=== PATIENT | male | born 1955 | race African-American/Black ===

== ENCOUNTER → 2020-03-08 12:45 | Outpatient (CLI) | payer MEDICARE, OTHER, SELFPAY ==
--- NOTE | ~2020-03-08 | CT_ITS ---
EXAMINATION: CT abdomen pelvis wo/w con DATE: 03/08/2020 13:46 INDICATION: Malignant neoplasm of the left kidney. Post left nephrectomy. Hypertension. TECHNIQUE: Computed tomography (CT) of the abdomen and pelvis was performed without and with 100 cc O mnipaque 350 intravenous contrast. The dose-length product was 1822.38 mGy-cm. Automated exposure con trol and iterative reconstruction technique were employed. COMPARISON: CT dated 03/21/2019 FINDINGS: There is left lower lobe atelectasis/scarring. Heart size normal. No significant pleural or pericardial effusion. The liver, spleen, pancreas, adrenal glands are unremarkable. There are right renal cysts, largest measuring 1.8 cm. The left kidney is surgically absent. Small periumbilical scott ia containing fat. Nonobstructive bowel gas pattern. Nonobstructive bowel gas pattern. Normal appendi x. Colonic diverticulosis without evidence for diverticulitis. No abnormal pelvic masses or fluid col lections. No osteolytic or osteoblastic lesions. No acute osseous abnormality. No significant vascula r abnormality. No lymphadenopathy. Gallbladder is present. IMPRESSION: 1. No evidence for metastatic disease. Reviewed, dictated and finalized at location A.
--- NOTE | ~2020-03-08 | XR_ITS ---
XR chest 2V DATE: 03/08/2020 13:47 INDICATION: Left renal neoplasm TECHNIQUE: 2 views COMPARISON: 02/11/2019 2 view chest FINDINGS: Borderline heart size. No hilar or mediastinal enlargement. No pulmonary infiltrate or cons olidation, pleural effusion or pulmonary vascular congestion or pneumothorax. Evidence of old pulmona ry granulomatous disease. IMPRESSION: Borderline heart size; no active pulmonary disease Reviewed, dictated and finalized at location B.
[2020-03-08 13:26] LABS: Estimated Glomerular Filt Rate > 60
== END ==
PROVIDERS: Visit Provider Urology
DX: C64.2 Malignant neoplasm of left kidney, except renal pelvis (principal)
CPT/HCPCS: 36415; 71046; 74178; Q9967

== ENCOUNTER → 2020-11-28 17:21 | Outpatient (CLI) | payer MEDICARE, SELFPAY ==
--- NOTE | ~2020-11-28 | XR_ITS ---
EXAMINATION: XR knee LT 2V DATE: 11/28/2020 18:57 INDICATION: Left knee pain. TECHNIQUE: 2 views of left knee were obtained. COMPARISON: Left knee radiographs 10/16/2004 FINDINGS: Bone alignment is normal. No fracture. There is mild osteoarthritis of medial and patellofe moral compartments. No knee joint effusion. IMPRESSION: 1. Mild left knee osteoarthritis. Reviewed, dictated and finalized at location A.
--- NOTE | ~2020-11-28 | XR_ITS ---
EXAMINATION: XR knee RT 2V DATE: 11/28/2020 18:57 INDICATION: Right knee pain. TECHNIQUE: 2 views of right knee were obtained. COMPARISON: None. FINDINGS: Bone alignment is normal. No fracture. There is mild osteoarthritis of medial and patellofe moral compartments. No knee joint effusion. IMPRESSION: 1. Mild right knee osteoarthritis. Reviewed, dictated and finalized at location A.
== END ==
PROVIDERS: PCP Family Medicine; Visit Provider Family Medicine
DX: M17.0 Bilateral primary osteoarthritis of knee (principal)
CPT/HCPCS: 73560

== ENCOUNTER → 2021-04-01 12:34 | Outpatient (CLI) | payer MEDICARE, SELFPAY ==
--- NOTE | ~2021-04-01 | XR_ITS ---
EXAMINATION: XR chest 2V DATE: 04/01/2021 12:51 INDICATION: Malignant neoplasm of left kidney, except renal pelvis. TECHNIQUE: Frontal and lateral views of the chest were obtained. COMPARISON: Chest 2 views 03/08/2020, CT abdomen and pelvis 03/08/2020 FINDINGS: The chest demonstrates clear lungs without pneumonia, pleural effusion, or pneumothorax. Th e heart size is normal. IMPRESSION: 1. No acute cardiopulmonary disease. Reviewed, dictated and finalized at location A.
== END ==
PROVIDERS: PCP Family Medicine; Visit Provider Urology
DX: C64.2 Malignant neoplasm of left kidney, except renal pelvis (principal)
CPT/HCPCS: 71046

== ENCOUNTER → 2021-12-16 13:06 | Outpatient (CLI) | payer MEDICARE, SELFPAY ==
--- NOTE | ~2021-12-16 | CT_ITS ---
EXAMINATION: CT abdomen pelvis wo con DATE: 12/16/2021 13:46 INDICATION: Renal colic on right side TECHNIQUE: Computed tomography (CT) of the abdomen and pelvis was performed without intravenous contr ast. The dose-length product was 1048.44 mGy-cm. COMPARISON: 03/08/2020 FINDINGS: Lower thorax: Bilateral lower lung scarring. Minimal aortic valve calcification. Mild bilateral gynec omastia. Liver: Normal. Biliary/Gallbladder: Gallbladder is normal. No bile duct dilation. Spleen: Normal. Pancreas: No mass or duct dilation. Adrenals:No mass. Kidneys: Right upper pole simple cyst. Subcentimeter right lower pole hypodensity, too small to alek cterize but statistically likely represents a cyst and requires no additional follow-up. Stable mild perinephric stranding. No suspicious mass, no stone, no hydronephrosis on the right. Status post left nephrectomy. GI tract: No small or large bowel dilation. Diverticulosis without diverticulitis. Normal appendix. Mesentery/Peritoneum: No ascites, mass, or free air. Retroperitoneum: No mass. Pelvis: Pelvic organs are within normal limits. Bones/Soft Tissues: Small fat-containing periumbilical hernia, otherwise soft tissues and body wall u nremarkable. No acute osseous finding. Additional Findings: None. IMPRESSION: No acute abdominopelvic process. Reviewed, dictated and finalized at location K.
--- NOTE | ~2021-12-16 | XR_ITS ---
EXAM: XR abdomen/kub 1V HISTORY: Renal colic on right side COMPARISON: CT abdomen and pelvis, same date FINDINGS: Lung bases clear. Normal bowel gas pattern. Surgical clips in the left midabdomen, absent left renal shadow. No abnormal abdominal calcifications. Degenerative changes in the pelvis and hips. IMPRESSION: No radiographic evidence of nephrolithiasis. Reviewed, dictated and finalized at location K.
== END ==
PROVIDERS: PCP Family Medicine; Visit Provider Urology
DX: N23 Unspecified renal colic (principal)
CPT/HCPCS: 74018; 74176

== ENCOUNTER → 2022-10-27 15:10 | Outpatient (CLI) | payer MEDICARE, SELFPAY ==
--- NOTE | ~2022-10-27 | XR_ITS ---
EXAM: XR knee RT 3V DATE: 10/27/2022 16:04 HISTORY: M25.561 - Pain in right knee . COMPARISON: 11/28/2020. FINDINGS: Normal mineralization. No fracture or dislocation. No lytic or blastic lesion. Mild medial joint space narrowing. Mild tricompartmental osteophytosis. Quadriceps enthesopathy. Unfused tibial apophysis. No erosion or periosteal change. Soft tissues within normal limits. IMPRESSION: Mild tricompartmental right knee osteoarthritis. 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
== END ==
PROVIDERS: PCP Family Medicine; Visit Provider Family Medicine
DX: M17.11 Unilateral primary osteoarthritis, right knee (principal)
CPT/HCPCS: 73562

== ENCOUNTER → 2022-11-21 14:54 | Outpatient (CLI) | payer MEDICARE, SELFPAY ==
--- NOTE | ~2022-11-21 | XR_ITS ---
EXAMINATION: XR chest 2V 11/21/2022 15:07 INDICATION: Chest pain PROCEDURE: 2 view chest COMPARISON: 04/01/2020 FINDINGS: The lungs are clear. The cardiomediastinal silhouette is within normal limits. There are no pleural effusions. There is no pneumothorax suspected. There are calcified granulomas unchanged in the right mid thorax. IMPRESSION: 1: NO ACUTE CARDIOPULMONARY DISEASE. Reviewed, dictated and finalized at location A.
== END ==
PROVIDERS: PCP Family Medicine; Visit Provider Physician Assistant
DX: R05.9 Cough, unspecified (principal); J45.909 Unspecified asthma, uncomplicated; R06.09 Other forms of dyspnea
CPT/HCPCS: 71046

== ENCOUNTER 2024-02-23 14:29 | Outpatient (CLI) | payer MEDICARE, SELFPAY ==
--- NOTE | 2024-02-23 16:38 | WPDPFTINT ---
PFT Procedure Performed PFT Procedure Performed Spirometry with Pre/Post Bronchodilator Plethysmography (Lung Vol) Diffusing Cap (DLCO) Flow Vol Loop PFT Interpretation This is a pulmonary function test with pre and post-bronchodilator spirometry, plethysmography and diffusing capacity. The test was performed and results interpreted in accordance with the 2019 and 2005 ATS/ERS Task Force guidelines respectively using the Global Lung Function Initiative-2012 reference equations. Patient demonstrated good effort and cooperation. Reproducibility criteria were met. The quality of the pre bronchodilator spirometry maneuver was Grade A and post bronchodilator spirometry maneuver was Grade A. Findings: Spirometry: There is decreased maximal expiratory airflow at all lung volumes with concave expiratory flow tracing. The contour the inspiratory flow tracing is normal. The pre bronchodilator FVC is 2.27 L, 55% predicted. The pre bronchodilator FEV1 is 1.46 L, 47% predicted. The pre bronchodilator FEV1: FVC ratio 64%. The post bronchodilator FVC is 2.49 L, representing a 9% increase. The post bronchodilator FEV1 is 1.70 L, representing a 17% increase. The post bronchodilator FEV1: FVC ratio 69%. Plethysmography: The total lung capacity is 4.36 L, 63% predicted. The functional residual capacity is 2.65 L, 68% predicted. The residual volume is 1.89 L, 76% predicted. Diffusing capacity: The diffusing capacity unadjusted for hemoglobin and carboxyhemoglobin is 19.1, 69% predicted. The diffusing capacity adjusted for alveolar volume is 4.89, 132% predicted. Impression: There is a combined obstructive and restrictive ventilatory abnormality. There are no guidelines to assign the severity of obstruction and restriction with a combined abnormality. In my opinion, given the moderately concave expiratory flow tracing, mildly decreased FEV1: FVC ratio and mild restrictive abnormality I would state there is a moderate obstructive abnormality and a mild restrictive abnormality resulting in a severe decrease in the FEV1. There is significant improvement after inhaling a single dose of albuterol. The diffusing capacity unadjusted for hemoglobin and carboxyhemoglobin is mildly decreased and normalizes when adjusted for alveolar volume. There are no prior studies for comparison
== END 2024-02-23 14:30 | disposition home or self-care (01) ==
PROVIDERS: PCP Family Medicine; Visit Provider Physician Assistant
DX: J45.909 Unspecified asthma, uncomplicated (principal); R94.2 Abnormal results of pulmonary function studies
CPT/HCPCS: 94060; 94726; 94729

== ENCOUNTER 2024-05-26 15:00 | Outpatient (CLI) | payer MEDICARE, SELFPAY ==
--- NOTE | ~2024-05-26 | XR_ITS ---
EXAMINATION: XR chest 2V Exam Date/Time: 05/26/2024 15:05 CDT HISTORY: J45.909 - Unspecified asthma, uncomplicated Comparison: 11/21/2022. RESULT: Lines, tubes, and devices: None. Lungs and pleura: Clear. Cardiomediastinal silhouette: Stable. Other: No acute osseous or upper abdominal finding. IMPRESSION: No acute cardiopulmonary process. Reviewed, dictated and finalized at location K.
== END 2024-05-26 15:01 | disposition home or self-care (01) ==
PROVIDERS: PCP Family Medicine; Visit Provider Internal Medicine Pulmonary Disease
DX: J45.909 Unspecified asthma, uncomplicated (principal); J98.4 Other disorders of lung
CPT/HCPCS: 71046

== ENCOUNTER 2024-06-10 13:42 | Outpatient (CLI) | payer MEDICARE, SELFPAY ==
--- NOTE | ~2024-06-10 | CT_ITS ---
CT diagnostic chest wo con Ordering provider: Gilmer Fuentes MD History: 68 years Male with . Other disorders of lung . Comparison: None. Technique: CT chest without IV contrast. Radiation reduction technique utilized.The dose-length product was 695.26 mGy-cm. FINDINGS: VISUALIZED THORACIC INLET: Enlarged right lobe with multiple nodules. Ultrasound evaluation advised. MEDIASTINUM: Aorta/coronary arteries: Mild atheromatous disease. Heart/other: The heart is slightly enlarged. Lymph nodes: No mediastinal or hilar adenopathy. Calcification the left hilar lymph nodes. LUNGS: Subsegmental atelectatic changes seen in the left lung base. Pleural thickening in the left lo wer lobe area posteriorly. No pulmonary nodules or masses. No infiltrates or effusions. No pneumothor ax. VISUALIZED UPPER ABDOMEN: the visualized upper abdomen is normal. MUSCULOSKELETAL: Soft tissues: The superficial soft tissues are normal. Bones: Age appropriate degenerative changes of the spine. Severe Kyphosis. Mild dextroscoliosis. IMPRESSION: 1. Subsegmental atelectasis in the left lower lobe. 2. No acute cardiopulmonary. 3. Multiple nodules in the thyroid gland. Ultrasound evaluation advised. Reviewed, dictated and finalized at location A.
== END 2024-06-10 13:43 | disposition home or self-care (01) ==
LOC: MICIMG 13:43
PROVIDERS: PCP Family Medicine; Visit Provider Internal Medicine Pulmonary Disease
DX: J98.4 Other disorders of lung (principal)
CPT/HCPCS: 71250

== ENCOUNTER 2024-09-27 11:13 | Outpatient (CLI) | payer MEDICARE, SELFPAY ==
--- NOTE | ~2024-09-27 | US_ITS ---
EXAMINATION: US thyroid DATE: 09/27/2024 11:47 INDICATION: Thyroid nodules. TECHNIQUE: Multiple ultrasound images of the thyroid were obtained. COMPARISON: None. FINDINGS: The right thyroid lobe measures 5.9 x 2.1 x 4.7 cm. The left thyroid lobe measures 3.9 x 1.8 x 1.0 c m. In the left thyroid lobe, there is an 11 mm solid, hypoechoic, wider than tall nodule with ill-de fined margin without echogenic foci (TI-RADS TR4). In the right thyroid lobe, there is a 17 mm solid, hypoechoic, wider than tall nodule with ill-defined margin without echogenic foci (TR4). In the righ t thyroid lobe, there is a 29 mm solid, isoechoic, wider than tall nodule with ill-defined margin wit hout echogenic foci (TR3). IMPRESSION: 1. Thyroid nodules. Ultrasound-guided fine-needle aspiration of the 17 mm right thyroid nodule and 29 mm right thyroid nodule is recommended. Reviewed, dictated and finalized at location A. CAL MANAGER
--- OUTSIDE RECORDS SUMMARY | 2024-09-27 12:22 | XMS_ITS | Continuity of Care Document ---
Author Organization [facility] Address [address] [place] [address] Phone Care Team Providers Care Mess Attendant Crew Name Role Phone Carmina Waldrop Unavailable Unavailable Procedures Procedure Date Eye Exam & Treatment Refraction Office/outpatient Visit, Est Office/outpatient Visit, Est No Charge Glasses Check Eye Exam & Treatment Refraction Office/outpatient Visit, Est Advance Directives Directive Yes / No Effective Date File Name No Information Encounters Encounter Description Practice Location Reason(s) For Visit Diagnoses Date Provider Providers Copied on Encounter [facility], [address] [place] [address] [address], [place], [place], [id number], tel:[phone] [facility] No Information 0 Palma Silver [address] , [address], [place], [address], [place]. tel:[phone] Office/outpat ient Visit, [facility], [address] [place] [address] [address], [place], [place], [id number], [place] tel:[phone] [facility] No Information 0 Palma Silver [address] , [address], [place], [address], [place]. tel:[phone] Office/outpat ient Visit, [facility], [address] [place] [address] [address], [place], [place], [id number], tel:[phone] [facility] No Information Sep-2 2-200 9 Palma Silver [address] , [address], [place], [place], [facility], . tel:[phone] [facility], [address] [place] [address] [address], [place], [place], [id number], tel:[phone] [facility] No Information Dec-0 2-200 8 Palma Silver [address] , [address], [place], [facility], . tel:[phone] [facility], [address] [place] [address] [address], [place], [place], [id number], tel:[phone] [facility] No Information Sep-1 6-200 8 Palma Silver [address] , [address], [place], [facility], . tel:[phone] Office/outpat ient Visit, [facility], [address] [place] [address] [address], [place], [place], [id number], tel:[phone] [facility] No Information Dec-0 4-200 7 Palma Silver [address] , [address], [place], [place], [facility], . tel:[phone] Family History Family Member Type Diagnosis Age At Onset No Information Payers Payer name Insurance type Covered green party ID Perla kuhn(s) [employer] Plan CI [id number] Social History Type Description Quantity Date Captured Comments Sex Male Smoking Status No Information Chief Complaint And Reason For Visit No Information Reason For Referral Reason For Referral No Information History Of Present Illness Encounter Date Complaint History Of Prese nt Illness No Information Functional Status Date Functional Assessmen t No Information Instructions Date Instruction Additional Infor mation No Information Assessments Type Assessment Date No Information Patient Care Teams Name Effective Dates (start - stop) Status Members No Information
--- OUTSIDE RECORDS SUMMARY | 2024-09-27 12:22 | XMS_ITS | Data Portability ---
Author Organization [place] [facility] [employer], Main Office Address [address] [place] [address] Care Team Providers Care Rpg Programmer Name Role Phone JUSTIN DRUMMOND Primary Care Provider JUSTIN DRUMMOND Referring Provider [phone] Assessment Encounter Date Assessment Date Assessment LastModified by Organization Details LastModified Time 01/14/2024 01/14/2024 The patient has pain in both hands with flexor tenosynovitis of the left 3rd finger and right 4th fingers. We talked about treatment options today in detail wanted proceed with cortisone injections and oral prednisone for short course. We will get him a prescription for this today. At his request under sterile conditions I injected the patient's A1 andre sites into the flexor tendon sheath of the left 3rd and right 4th fingers with 2 cc of 0.5% bupivacaine plain and 10 mg of Kenalog each. The patient tolerated the procedures well. I will see him back in 6 weeks to see what impact treatment has had. He voiced understanding and agrees above plan will call for any further problems difficulties or questions. [email or web address] Not available 01/14/2024 15:22:12 Plan of Treatment Reminders Order Date Submit Date Provider Last Modified By Organization Details Last Modified Time Details Appointments None recorded. Lab None recorded. Referral None recorded. Procedures injection/a spiration joint/bursa (PROC) 2023 024 [email or web address] In-Office Order, Internal Use Only DO Not Attach Compendium DO Not Attach Compendium, Do Not Delete/merge, [id number] 14:41:36 injection/a spiration joint/bursa (PROC) 2023 024 [email or web address] In-Office Order, Internal Use Only DO Not Attach Compendium DO Not Attach Compendium, Do Not Delete/merge, [id number] 14:41:36 Surgeries None recorded. Imaging XR, hand 2023 024 [email or web address] [facility] [place], [address], [place], [address], 16:08:31 Medication Orders bupivacaine HCl 0.5 % (5 mg/mL) injection solution 2023 024 [email or web address] [facility]/Pharmacy #[id number], [address] [place], [address], 16:08:31 Kenalog 10 mg/mL suspension for injection [address]/Pharmacy #6830, [address] [place], [address], 4 16:08:31 bupivacaine HCl 0.5 % (5 mg/mL) injection solution [address]/Pharmacy #6830, [address] [place], [address], 16:08:31 Kenalog 10 mg/mL suspension for injection [address]/Pharmacy #6830, [address] [place], [address], 4 16:08:31 prednisone 10 mg tablets in a dose pack [address]/Pharmacy #6830, [address] [place], [address], 4 16:08:31 Patient TargetsNo targets recorded. Patient InstructionsNo instructions recorded. Reason for Referral None Reported. Results Created Date Observation Date Name Description Value Unit Range Abnormal Flag Note LastModifiedBy Organization Detail LastModifiedTime 01/14/20 24 XR, hand No observ ation record ed. [email or web address] [facility] [address], [place], [address], 01/14/2024 15:22:51 Result Notes None recorded. Problems Name Problem SNOMED Code Status Onset Date Resolution Date Notes Provider Name and Address Organization Details Recorded Time Pain of bilateral hands 82296298701518 109 Active 2023 [employer] [address], [facility] 14:02:36 Acquired trigger finger of left middle finger 95721988595264 2 Active 2023 Viji Dorothy [address], [facility] 14:37:21 Acquired trigger finger of right ring finger 75351942856112 8 Active 2023 Viji Dorothy [address], [facility] 14:37:32 Problem Notes None recorded. Procedures Surgical History Date Name Laterality Status Provider Name and Address Organization Details Recorded Time [facility] 13:58:50 [facility] 13:58:40 Imaging Results Imaging Date Name Status LastModified by Organiz ation Details LastModified Time 01/14/2024 XR, hand completed [email or web address] [facility] [address], [place], [address], 01/14/2024 15:22:51 Procedure Notes None recorded. Medical Equipment None Reported. Allergies Allergen ID Allergen Name Allergen Category Reaction Reaction Severity Criticality Documentation Date Start Date Code Code System Note Provider Name and Address Organization Details Recorded Time 28237 Substance with sulfonami de structure and antibacte rial mechanism of action (substanc e) medicatio n Not available Not available Not available 01/14/2024 93191 8003 SNOMED [employer] [place], [place] [facility] 13:54:37 85424 salmetero l xinafoate medicatio n Not available Not available [facility] 01/14/2024 87740 RxNorm spasm s and cramp s [facility] 13:55:27 77764 hydrochlo rothiazid e medicatio n Not available Not available [facility] 01/14/2024 5487 RxNorm cramp s and spasm s [facility] 13:55:54 Medications Name Sig Start Date Stop Date Status Note LastModified by Organization Details LastModified Time amoxicillin 500 mg capsule FOR THE NEXT 5 DAYS TAKE 1 CAPSULE (500 MG) BY ORAL ROUTE EVERY 8 HOURS 01/13 completed Not Available Not Available Not Available bupivacaine HCl 0.5 % (5 mg/mL) injection solution Take 10 mg by injection route. 2023 active Not Available Not Available Not Avai lable valsartan 80 mg tablet TAKE 1 TABLET BY MOUTH EVERY DAY active Not Available Not Available No t Available diltiazem CD 360 mg capsule,ext ended release 24 hr TAKE 1 CAPSULE BY MOUTH EVERY DAY active Not Available Not Available No t Available allopurinol 100 mg tablet TAKE 1 TABLET BY MOUTH EVERY DAY active Not Available Not Available No t Available tramadol 50 mg tablet 50 MG ORALLY EVERY 6 HOURS NEEDED FOR PAIN active Not Available Not Available No t Available prednisone 10 mg tablets in a dose pack PLEASE SEE ATTACHED FOR DETAILED DIRECTION S active Not Available Not Available No t Available Kenalog 10 mg/mL suspension for injection Take 10 mg by injection route. 2023 active ND: 0003- [id number]- 20 Not Available Not Available Not Available benzonatate 100 mg capsule TAKE 1 CAPSULE BY MOUTH THREE TIMES A DAY FOR 10 DAYS 01/13 completed Not Available Not Available Not Available omeprazole 20 mg capsule,del ayed release TAKE 1 CAPSULE BY MOUTH EVERY DAY active Not Available Not Available No t Available furosemide 20 mg tablet TAKE 1 TABLET BY MOUTH EVERY DAY active Not Available Not Available No t Available albuterol sulfate HFA 90 mcg/actuati on aerosol inhaler TAKE 2 APPLICATI ON (INHALATI ON) EVERY 4 HOURS FOR 7 DAYS active Not Available Not Available No t Available fluticasone propionate 50 mcg/actuati on nasal spray,suspe nsion USE 2 - 3 SPRAY INTRANASA LLY TWICE A DAY ADMINISTE R INTO EACH NOSTRIL active Not Available Not Available No t Available levalbutero l HFA 45 mcg/actuati on aerosol inhaler INHALE 2 PUFFS EVERY 6 HOURS NEEDED FOR WHEEZE OR FOR SHORTNESS OF BREATH 01/13 completed Not Available Not Available Not Available chlorhexidi ne gluconate 0.12 % mouthwash SWISH AND SPIT WITH 15MLS BY MOUTH TWICE DAILY (AFTER MEALS) 01/13 completed Not Available Not Available Not Available Dulera 100 mcg-5 mcg/actuati on HFA aerosol inhaler 2 PUFF INHALED EVERY 12 HOURS RINSE MOUTH AND SPIT AFTER EACH USE active Not Available Not Available No t Available Xarelto 20 mg tablet TAKE 1 TABLET BY MOUTH EVERY DAY active Not Available Not Available No t Available Myrbetriq 25 mg tablet,exte nded release TAKE 1 TABLET BY MOUTH EVERY DAY active Not Available Not Available No t Available Trulicity 1.5 mg/0.5 mL subcutaneou s pen injector INJECT 1.5 MG (0.5 ML) SUBCUTANE OUSLY WEEKLY active Not Available Not Available No t Available Trulicity 0.75 mg/0.5 mL subcutaneou s pen injector INJECT 0.75 MG (0.5 ML) SUBCUTANE OUSLY WEEKLY active Not Available Not Available No t Available Repatha SureClick 140 mg/mL subcutaneou s pen injector active Not Available Not Available Not Available Qvar RediHaler 80 mcg/actuati on HFA breath activated aerosol INHALE 2 PUFFS BY MOUTH EVERY 12 HOURS. 01/13 completed Not Available Not Available Not Available Tiadylt ER 360 mg capsule,ext ended release TAKE 1 CAPSULE BY MOUTH EVERY DAY active Not Available Not Available No t Available Ozempic 0.25 mg or 0.5 mg (2 mg/3 mL) subcutaneou s pen injector 0.5 MG (0.736 ML) SUBCUTANE OUSLY WEEKLY FOR 4 WEEKS active Not Available Not Available No t Available Vitals Date Recorded Body height Body mass index (BMI) Body weight Provider Name and Address Organization Details Last Updated DateTime 01/14/2024 185.42 cm 40.5 kg/m2 023681.86 g Viji Dorothy [place] [facility] 01/14/2024 13:54:16 Social History None recorded. Functional Status None recorded. Mental Status None recorded. Family History Nothing Reported. Medical History Condition Response CANCER: SPECIFY Y ARTHRITIS Y GOUT Y USE OF BLOOD THINNERS Y HEART ARRHYTHMIA Y ANEMIA/BLOOD DISORDER Y HYPERTENSION Y Past Encounters Encounter ID Performer Location Encounter Start Date Encounter Closed Date Diagnosis/Indication Diagnosis SNOMED-CT Code Diagnosis ICD10 Code Diagnosis Note [id number] NOLBERTO Jose [facility] [place] [address] [place] [address] 01/14/2024 13:26:09 01/14/2024 14:47:33 Pain of bilateral hands 1104271570 1439126 M79.641 M79.642 Acquired t geology instructor finger of left middle finger 7699370838 34586 M65.332 Acquired t geology instructor finger of right ring finger [id number] 69583 M65.341 Health Concerns Section Related Observation LastModified by Organization Detai ls LastModified Time None Recorded Concern Status LastModified by Organization Details LastModified Time None Recorded Advance Directives Directive None Recorded Payers Encounter Date Sequence Insurance Name Policy Number Policy Loving Covered Member ID Loving Member ID Guarantor Name 01/14/2024 1 [employer] (MEDICARE REPLACEMENT PPO) [id number] Austin Pena [id number] Austin Pena Notes Date Note Type Note Provider Name and Address Organization Details Recorded Time 01/14/2024 text/html The patient is a 68-year-old male who presents with bilateral hand pain. He has pain in the left middle finger and also the right ring finger. This has been ongoing for 4-5 months now. He states he has trouble fully flexing his fingers down or fully straightening them with regards to the 2 fingers listed. Occasionally he will get some triggering of the right 4th finger his main complaint is pain and tenderness around the A1 andre site into the base of the finger on the right he has pain and tenderness of the left 3rd finger around the A1 andre site into the base of the finger but no locking or catching here. He states they feel tight and stiff he has trouble bringing the all the way down to make a fist. He is diabetic but denies any history of trauma or injury to either hand no erythema heat effusion or signs of infection. He does not smoke denies any numbness or tingling no evidence of carpal tunnel syndrome or weakness. He states he is right handed when he uses his hand too much she gets more discomfort and pain localized to the tendon sheath particularly the A1 andre site. The patient comes in today for initial evaluation treatment of bilateral hand pain as described in the fingers described. The only thing the patient has been doing for his hand so far are massage with Flaco-Alvarez type ointment to try to help relieve some of the pain. A new past medical history sheet was reviewed and signed on the intake sheet of today's date drug allergies current medications family social history previous surgical history 10 point review of systems was reviewed and discussed in detail today with the patient. The patient can not take oral anti-inflammatories due to the fact that he is on chronic Xarelto for atrial fibrillation. NOLBERTO Jose [address] [facility], [facility] [address], [place], [address], [place] [facility] [employer] 01/14/2024 15:23:11
--- OUTSIDE RECORDS SUMMARY | 2024-09-27 12:22 | XMS_ITS | Encounter Summary ---
Author Organization [facility] Healthcare Address [address] [place] [address] Care Team Providers Care Fitness Services Manager Name Role Phone Demian Madden MD Primary Care Provider Demian Madden MD Primary Care Provider Encounter Details Date Type Department Care Team (Late st Contact Info) Description 11/23/2017 Telephone [facility] Pre Anesthesia Testing [address] [place] [address] Ela Simons RN Social History Tobacco Use Types Packs/Day Years Used Date Smoking Tobacco: Former Smokeless Tobacco: Never Alcohol Use Standard Drinks/Week Comments No 0 (1 standard drink = 0.6 oz pur e alcohol) Sex and Gender Information Value Date Recorded Sex Assigned at Not on file Legal Sex Male 2:02 AM [employer]IGH[employer] Gender Identity Male 08/02/2019 10:33 PM [employer] WEIGH[employer]STER Sexual Orientation Straight 08/02/2019 10 :33 PM [employer] WEIGHMASTER documented as of this encounter Plan of Treatment Not on file documented as of this encounter Visit Diagnoses Not on filedocumented in this encounter Discontinued Medications Medication Sig Discontinue Reason Start Date End Da te dextromethorphan-guaifenesin 10-200 mg capsule Take by mouth. 11/23/2017 documented as of this encounter Historical Medications * This list may reflect changes made after this encounter. ONETOUCH ULTRA TEST strip USE TO TEST BLOOD SUGAR ONCE DAILY IN THE MORNING 10 11/13/2017 added in this encounter Care Teams Fitness Services Manager Relationship Specialty Start Date End Date Demian Madden MD [address] [place] [address] PCP - General 11/28/16 11/24/17 Demian Madden MD [address] [place] [address] PCP - General Family Medicine 11/25/17 documented as of this encounter
--- OUTSIDE RECORDS SUMMARY | 2024-09-27 12:23 | XMS_ITS | Clinical Summary ---
Author Organization [facility] [email or web address] Address [address] [place] [address] Care Team Providers Care Fusion Analyst Name Role Phone Unavailable Primary Care Provider Unavailabl e Source Comments [facility],non-owned Affiliates and Associated Physician Practices is amultiple site organization consisting of ambulatory clinics and hospital sitesin [place], [place], [place] and [place]. This disclosure is being madepursuant to the Care Everywhere program and may not contain all information available regarding this patient. Last updated 18.[email or web address] Allergies Active Allergy Reactions Criticality Noted Date Comments Guaifenesin Itching 06/26/2021 Apixaban Itching 06/26/2021 Fish Oil GI Discomfort 06/26/2021 Hydrochlorothiazide GI Discomfort 06/26/2021 Dexamethasone GI Discomfort High 06/26/2021 Metoprolol Anaphylaxis High 06/26/2021 Serevent Diskus Itching 06/26/2021 Sulfa Drugs Rash Medium 06/26/2021 Hydrochlorothiazide W-Triamterene GI Discomfort 06/26/2021 Medications * Be aware that medications may not be up to date on this document. Alwaysverify current medications with the patient. Medication Sig Dispensed Refills Start Date End Date Status dulaglutide (TRULICITY) 1.5 MG/0.5ML injection Inject 1.5 mg subcutaneously every 7 days Active ipratropium HFA (ATROVENT HFA) 17 MCG/ACT inhaler Inhale 2 puffs by mouth 3 times daily Active beclomethasone dipropionate (QVAR) 80 MCG/ACT inhaler Inhale 1 puff by mouth 2 times daily Active traMADol (ULTRAM) 50 MG tablet Take 50 mg by mouth every 6 hours as needed for Pain Active omeprazole (PRILOSEC) 20 MG capsule Take 20 mg by mouth daily before breakfast Active mirabegron ER 24hr (MYRBETRIQ) 25 MG tablet Take 25 mg by mouth once daily Active valsartan (DIOVAN) 80 MG tablet Take 80 mg by mouth once daily Active dilTIAZem HCl Coated Beads (DILTIAZEM CD PO) Take 360 mg by mouth once daily Active rivaroxaban (XARELTO) 20 MG tablet Take 20 mg by mouth daily with food Active fluticasone propionate (FLONASE) 50 MCG/ACT nasal spray [place] 2 sprays into each nostril once daily Active Loratadine (CLARITIN PO) Active Polyethylene Glycol 3350 (MIRALAX PO) Active Cobalamin Combinations (B-12) 100-5000 MCG SUBL Active Iron, Ferrous Sulfate, 142 (45 Fe) MG TBCR Active calcium 500 mg tablet Take 500 mg by mouth 2 times daily with morning and evening meal Active Potassium (POTASSIMIN PO) Active Ascorbic Acid (VITAMIN C) 500 MG Active Cholecalciferol (VITAMIN D3) 10 MCG (400 UNIT) Active Family History Medical History Relation Name Comments Cancer - Other Father Dementia Mother Relation Name Status Comments Father Mother Social History Tobacco Use Types Packs/Day Years Used Date Smoking Tobacco: Former Smokeless Tobacco: Never Alcohol Use Standard Drinks/Week Comments Not Currently 0 (1 standard drink = 0.6 oz pur e alcohol) Sex and Gender Information Value Date Recorded Sex Assigned at Not on file Gender Identity Not on file Sexual Orientation Not on file Last Filed Vital Signs Vital Sign Reading Time Taken Comments Blood Pressure 124/70 06/26/2021 3:14 PM CDT Pulse 81 06/26/2021 3:14 PM CDT Temperature 36.7 ??C (98.1 ??F) 06/26/2021 3:14 PM CD T Respiratory Rate 20 06/26/2021 3:14 PM CDT Oxygen Saturation 98% 06/26/2021 3:14 PM CDT Inhaled Oxygen Concentration - - Weight 139 kg (306 lb 8 oz) 06/26/2021 3:14 PM C DT Height 185.4 cm (6' 1 ) 06/26/2021 3:14 PM CDT Body Mass Index 40.44 06/26/2021 3:14 PM CDT Plan of Treatment Health Maintenance Due Date Last Done Comments COLOGUARD (AGES 45-75) - COLON CA SCREENING 1953 COLON MONITORING 1953 COLONOSCOPY - COLON CA SCREENING 1953 CT COLONOGRAPHY - COLON CA SCREENING 1953 Colorectal Cancer Screening 1953 FIT - COLON CA SCREENING 1953 FLEX SIG - COLON CA SCREENING 1953 LIPID TESTING 1953 HEPATITIS C SCREENING 10/07/1971 DTAP/TDAP/TD VACCINES (1 - Tdap) 1972 PNEUMOCOCCAL VACCINE 50+ (1 of 1 - PCV) 2003 ZOSTER VACCINE (1 of 2) 2003 Respiratory Syncytial Virus (RSV) Vaccine Pt: or over 60 yrs (1 - Risk 60-74 years 1-dose series) 2013 AAA SCREENING 2018 SCREENING FOR DIABETES 06/26/2021 COVID-19 VACCINE ( season) 2024 03/06/2021, 02/13/2021 INFLUENZA VACCINE (#1) 2024 0, 06/20/2020, 06/27/2019, Additional history exists DEPRESSION SCREENING 08/31/2024 MEDICARE AWV ? CALENDAR YEAR 2024 HEPATITIS B VACCINE Aged Out No longe r eligible based on patient's age to complete this topic HIB VACCINE Aged Out No longer eligi ble based on patient's age to complete this topic HPV VACCINE Aged Out No longer eligi ble based on patient's age to complete this topic MENINGOCOCCAL (Group B) VACCINE Aged Out No longer eligible based on patient's age to complete this topic MENINGOCOCCAL VACCINE Aged Out No denia wil eligible based on patient's age to complete this topic
--- OUTSIDE RECORDS SUMMARY | 2024-09-27 12:23 | XMS_ITS | Clinical Summary ---
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 Demian Madden MD Primary Care Provider [phone] Allergies Active Allergy Reactions Criticality Noted Date Comments Apixaban Unknown 09/06/2020 Ciprofloxacin Unknown 09/06/2020 Dexamethasone Unknown High 06/08/2019 Reaction: unknown, Docosahexaenoic Acid (Dha) (Fish) Unknown 09/06/2020 Guaifenesin Anxiety Low 06/09/2018 High dose makes him anxious Hydrochlorothiazide Other (see comments) Other: Leg cramps Metoprolol Shortness of breath High 11/23/2017 Salmeterol Other (see comments) Other: Leg cramps Statins Unknown Low 06/08/2019 Sulfa Antibiotics Rash,Unknown High Reaction: unknown, Triamterene Other (see comments) Other: Leg cramps Medications Medication Sig Dispensed Refills Start Date End Date Status digoxin (LANOXIN) 125 MCG tablet 1 tab/cap qday 10/28/2014 Active rivaroxaban (XARELTO) 20 MG tablet 1 qday 0 10/28/2014 Active albuterol HFA (PROVENTIL HFA) 108 (90 Base) MCG/ACT inhaler 2 puffs q4 - 6hr PRN 10/28/2014 Active metFORMIN (GLUCOPHAGE) 500 MG tablet 2 tabs/caps bid 0 10/28/2014 Active fluticasone-vilantero l (BREO ELLIPTA) 100-25 MCG/INH inhaler as directed 0 12/12/2015 Active Mirabegron ER (MYRBETRIQ) 25 MG tablet sustained-release 24 hour 1 tab/cap qday 0 10/28/2014 Active dilTIAZem CD (CARDIZEM CD) 360 MG 24 hr capsule 1 tab/cap qday 0 10/28/2014 Active mometasone-formoterol (DULERA) 200-5 MCG/ACT inhaler 2 puffs bid 0 12/10/2016 Active SITagliptin (JANUVIA) 100 MG tablet Take 100 mg by mouth daily Active traMADol (ULTRAM) 50 MG tablet Take 50 mg by mouth 11/17/2017 Activ e ipratropium HFA (ATROVENT HFA) 17 MCG/ACT inhaler Inhale 2 puffs 4 times daily Active guaiFENesin ER 1200 MG tablet sustained-release 12 hour Take 1,200 mg by mouth every 12 hours Active flecainide (TAMBOCOR) 50 MG tablet Take 50 mg by mouth 2 times daily 11/09/2018 Active ezetimibe (ZETIA) 10 MG tablet Take 10 mg by mouth daily Active coenzyme Q-10 100 MG capsule Take 100 mg by mouth 2 (two) times a week Active QVAR REDIHALER 80 MCG/ACT aerosol TAKE 2 PUFFS BY MOUTH TWICE A DAY 11 04/26/2019 Active omeprazole (PriLOSEC) [address] capsule TAKE 1 CAPSULE BY MOUTH EVERY DAY BEFORE A MEAL 3 05/31/2019 Active rosuvastatin (CRESTOR) 5 MG tablet Take 5 mg by mouth 1 (one) time each day 5 03/31/2019 Active glucose blood test strip USE TO TEST BLOOD SUGAR ONCE DAILY IN THE MORNING 12/27/2019 Active dilTIAZem (TIAZAC) 360 MG 24 hr capsule Take by mouth 1 (one) time each day 11/30/2019 Active metFORMIN XR (GLUCOPHATE-XR) 500 MG 24 hr tablet TAKE 4 TABLETS BY MOUTH EVERY DAY WITH EVENING MEAL 11/25/2019 Active valsartan (DIOVAN) 80 MG tablet Take 80 mg by mouth 1 (one) time each day 01/31/2020 Active azelastine (ASTELIN) 0.1 % nasal spray INSTILL 1 SPRAY INTO EACH NOSTRIL EVERY 12 HOURS 08/10/2020 Active fluticasone (FLONASE) 50 MCG/ACT nasal spray INSTILL 1 SPRAY INTO EACH NOSTRIL TWICE A DAY 08/10/2020 Active levalbuterol (XOPENEX HFA) 45 MCG/ACT inhaler INHALE 2 SPRAY INTO THE LUNGS EVERY 6 HOURS NEEDED FOR SHORTNESS OF BREATH OR WHEEZING 08/10/2020 Active Repatha SureClick 140 MG/ML solution auto-injector 01/10/2021 Active Trulicity 1.5 MG/0.5ML solution pen-injector INJECT 1 PEN INTO THE SKIN ONCE WEEKLY 01/29/2021 Active erythromycin (ROMYCIN) 5 MG/GM ophthalmic ointment 07/22/2021 Activ e ipratropium (ATROVENT) 0.03 % nasal spray Administer 2 sprays into affected nostril(s) every 12 hours Active predniSONE (DELTASONE) 10 MG tablet 05/28/2021 Active calcium carbonate (OS-GRZEGORZ) 1250 (500 Ca) MG tablet Take 500 mg by mouth Active Cobalamin Combinations (B-12) 100-[address] under the tongue Active ferrous sulfate 142 mg eXtended release tablet Take by mouth Active allopurinol (ZYLOPRIM) 100 MG tablet Take 100 mg by mouth 1 (one) time each day 02/12/2022 Active Active Problems Problem Noted Date Diagnosed Date Chalazion left lower eyelid 05/16/2022 Dizziness 09/06/2020 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 Stressed importance of tight blood glucose control/ diet/exercise and A1C <7% to reduce the risk of diabetic complications. Report sent to PCP/endo. Glaucoma suspect 10/19/2019 Presbyopia 10/19/2019 Suspected bilateral glaucoma 10/19/2019 Overview (02/26/2022): Last Assessment & Plan: Thick cct ou Acceptable iop both eyes (OU) Normal RNFL both eyes (OU) History of atrial flutter 12/14/2018 Chorioretinal scar of left eye 10/04/2018 Overview (02/26/2022): Last Assessment & Plan: Stable, monitor Posterior vitreous detachment 10/04/2018 Overview (08/14/2021): Last Assessment & Plan: Without RT/RB. Last Assessment & Plan: Without RT/RB. Last Assessment & Plan: Without RT/RB. Combined form of senile cataract 10/01/2018 Overview (06/07/2019): Last Assessment & Plan: Mild, progressive cataract OU: ADLs stable. Bilateral senile combined form cataracts of eyes 10/01/2018 Overview (02/26/2022): Last Assessment & Plan: Mild, progressive cataract OU: ADLs stable. Last Assessment & Plan: NVS, monitor Other chest pain 12/25/2017 Overview (08/14/2021): Last Assessment & Plan: Based on his history of diabetes, hypertension, and prior tobacco abuse I have recommended stress test. I did discuss this with his primary devops solutions architect, and we will send him for a Lexiscan. Had a stress test last in 2010 which was negative. He has no prior history of coronary disease, but his non exertional symptoms are concerning, especially in light of his diabetes. Atrial flutter 09/08/2017 Overview (08/14/2021): Last Assessment & Plan: He is currently in atrial flutter, but has previously been atrial fibrillation. Based on his EKG, this is likely a left atrial flutter. This could be targeted for ablation at the time of PVI if it persists after PVI is performed. Wdfevjuflfj-npyycnequv-gckfeg inhibitor adverse reaction 07/10/2017 Body mass index 40+ - severely obese 03/06/2017 Overview (08/14/2021): Last Assessment & Plan: We reviewed the importance of diet and exercise today for weight loss. To get his BMI less than 40, he will need a weight loss of about 20 lb. I did set a goal of a 10% weight loss with him, but at least BMI less than 40 will be useful to improve outcomes of pulmonary vein isolation in the future. Last Assessment & Plan: We reviewed the importance of diet and exercise today for weight loss. To get his BMI less than 40, he will need a weight loss of about 20 lb. I did set a goal of a 10% weight loss with him, but at least BMI less than 40 will be useful to improve outcomes of pulmonary vein isolation in the future. Pulmonary hypertension 12/10/2016 Overview (06/07/2019): Overview: Pulmonary HTN Morbid obesity 11/27/2015 Overview (08/14/2021): Overview: Morbid obesity with BMI of 45.0-49.9, adult Last Assessment & Plan: We discussed this in detail today. There is no doubt that his obesity is contributing to his medical problems, including his atrial fibrillation. I have advised diet and exercise to promote weight loss. Morbid obesity with BMI of 45.0-49.9, adult Last Assessment & Plan: We discussed this in detail today. There is no doubt that his obesity is contributing to his medical problems, including his atrial fibrillation. I have advised diet and exercise to promote weight loss. Persistent atrial fibrillation 11/27/2015 Overview (06/07/2019): Overview: Last Assessment & Plan: Unfortunately, he has had recurrence of his atrial fibrillation (currently atrial flutter) after cardioversion. This is in spite of treatment with Multaq. He previously had toxicity with amiodarone including possible corneal deposits and shortness of breath. We discussed options for management today at length. I am concerned that his BMI reduces his chance of success with PVI, which is already rather low given that he has persistent atrial fibrillation. In patients with BMI greater than 40, weight loss has been shown to improve durability of PVI. Treatment of sleep apnea is also very important. I do believe that he has symptoms secondary to atrial fibrillation, and he will benefit from maintenance of sinus rhythm if possible. I would like for him to attempt to lose weight and maintain this weight loss. We discussed PVI in detail today. I reviewed the risks of the procedure, including bleeding, vascular damage, cardiac perforation, esophageal damage, anesthesia complication, stroke, heart attack, , and recurrence. Since he is very symptomatic, I would like to try an alternative antiarrhythmic while he makes efforts at weight loss. He recently had a normal stress test, and therefore flecainide is acceptable. He should discontinue dronedarone and start flecainide. Will follow up with him in 3 months. If he is successful with his weight loss, we can schedule PVI. If he is not successful, we can still consider this as an option if he has not maintained sinus rhythm with flecainide. He should continue anticoagulation with Xarelto. His heart rate is currently controlled with diltiazem. Statin not tolerated 11/27/2015 Overview (08/14/2021): Statin intolerance Diabetic renal disease 11/27/2015 Overview (08/14/2021): DM type 2 causing CKD stage 3 Chronic kidney disease 10/28/2014 Benign hypertension 10/28/2014 Overview (08/14/2021): HTN (hypertension), benign Type 2 diabetes mellitus wit h other diabetic kidney complication 10/28/2014 Other hyperlipidemia 10/28/2014 Overview (11/13/2018): Converted unresolved ICD9, potential mismatch. Polyosteoarthritis 10/28/2014 Other asthma 10/28/2014 Gastro-esophageal reflux disease without esophag itis 10/28/2014 Sleep apnea 10/28/2014 Acquired absence of kidney 10/28/2014 Other proteinuria 10/28/2014 H/O: anticoagulant therapy 05/29/2014 Overview (08/14/2021): Chronic anticoagulation Pulmonary function studies abnormal 05/29/2014 Overview (08/14/2021): Abnormal pulmonary function test Paroxysmal atrial fibrillation 04/13/2014 Overview (06/07/2019): Last Assessment & Plan: He has maintained sinus rhythm for 1 month following cardioversion. He does note some improvement in his dyspnea, although I do believe his dyspnea with exertion is multifactorial. I have encouraged continued compliance with his CPAP. He also needs to continue his efforts at weight loss. At this point, his BMI is 42, which makes PVI more difficult and less likely to be successful. I would like to start a 2nd antiarrhythmic drug. I reviewed the options with him today. Will start dronedarone 40 mg twice a day. He should continue anticoagulation with Xarelto. Degeneration of cervical intervertebral disc Spinal stenosis of cervical region 04/13/2014 Malignant tumor of kidney 05/26/2011 Palpitations 05/26/2011 Immunizations Name Administration Dates Next Due Influenza (IM) Preservative Free 05/31/2013 Influenza TIV (IM) 06/11/2016,10/30/2014 Influenza, Injectable, Quadrivalent 06/20/2020 Sars-cov-2, Unspecified 01/12/2021 Family History Medical History Relation Comments Malignant neoplastic disease Father Coronary arteriosclerosis Mother Hypertensive disorder Mother Hypertensive disorder Sibling Kidney disease Neg Hx Kidney stone Neg Hx Relation Status Comments Father Mother Sibling Social History Tobacco Use Types Packs/Day Years Used Date Smoking Tobacco: Former Cigarettes Q uit: 1996 Smokeless Tobacco: Never Tobacco Cessation:Counseling Given: Not Answered Alcohol Use Standard Drinks/Week Comments No 0 (1 standard drink = 0.6 oz pur e alcohol) Sex and Gender Information Value Date Recorded Sex Assigned at Not on file Gender Identity Not on file Sexual Orientation Not on file Last Filed Vital Signs Vital Sign Reading Time Taken Comments Blood Pressure 136/76 08/13/2022 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 Pulse - - Temperature 35.9 ??C (96.7 ??F) 08/13/2022 2:32 PM CS T Respiratory Rate 18 08/13/2022 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 Oxygen Saturation - - Inhaled Oxygen Concentration - - Weight 141 kg (310 lb) 08/13/2022 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 Height 185.4 cm (6' 1 ) 08/13/2022 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 Body Mass Index 40.9 08/13/2022 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 Plan of Treatment Health Maintenance Due Date Last Done Comments Pneumococcal PPSV23/PCV13 65 + Years / High and Highest Risk (1 of 4 - PCV) 1959 Diabetic Foot Exam 1963 Ophthalmology Exam 10/19/2020 10/19/2019, 10/04/2018 Influenza Vaccine (#1) 2024 6, 10/30/2014, 05/31/2013 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
--- OUTSIDE RECORDS SUMMARY | 2024-09-27 12:23 | XMS_ITS | Referral Summary ---
Author Organization [facility] [address] Address [address] [place] [address] Care Team Providers Care Piling Setter Name Role Phone Demian Madden MD Primary Care Provider Encounters Date Type Department Care Team Description 07/11/2024 Telephone [facility] Accountable Care Organization [address] [place] [id number] Sherri Daniels MA Unsuccessful Phone Call 1 (Med adh) from Last 3 Months Allergies Active Allergy Reactions Criticality Noted Date Comments Guaifenesin Anxiety Low 06/09/2018 High dose makes him anxious Ciprofloxacin Unknown 09/06/2020 Dexamethasone Other (See comments) High Reaction: unknown, Apixaban Unknown 09/06/2020 [place]-3 Fatty Acids Unknown 09/06/2020 Hydrochlorothiazide Unknown Low Metoprolol Shortness of breath High 11/23/2017 Salmeterol Unknown Low Nmdxrou-Xwx-Onj Reductase Inhibitors Unknown Low Sulfa (Sulfonamide Antibiotics) Other (See comments) High Reaction: unknown, Pwxeyeknxrc-Pyuhcpres-Uuxga ter Anaphylaxis High 12/01/2023 Triamterene Unknown Low Medications ONETOUCH ULTRA TEST strip USE TO TEST BLOOD SUGAR ONCE DAILY IN THE MORNING 10 8 Active traMADol (ULTRAM) 50 mg tablet Take 1 tablet (50 mg total) by mouth as needed for pain 8 Active beclomethasone (QVAR) 80 mcg/actuation inhaler Inhale 1 puff 2 (two) times a day Rinse mouth with water after use. Do not swallow. Active loratadine (CLARITIN) 10 mg tablet Take 1 tablet (10 mg total) by mouth daily Active mirabegron ER (MYRBETRIQ) 25 mg tablet extended release 24 hr Take 1 tablet (25 mg total) by mouth daily Active OMEPRAZOLE ORAL Take 40 mg by mouth daily as needed Active valsartan (DIOVAN) 80 mg tablet Take 1 tablet (80 mg total) by mouth daily Active fluticasone propionate (FLONASE) 50 mcg/actuation nasal spray Administer 1 spray into each nostril daily Active allopurinoL (ZYLOPRIM) 100 mg tablet 2 Active ferrous sulfate ER (SLOW IRON) 142 mg (45 mg of elemental iron) tablet Take by mouth as needed Active cyanocobalamin /folic acid (vitamin X15-yznfn acid) 1,000-[address] under the tongue Active azelastine (ASTELIN) 137 mcg (0.1 %) nasal spray SPRAY 1 SPRAY INTRANASALLY EVERY 12 HOURS ADMINISTER INTO EACH NOSTRIL 3 Active levalbuterol (XOPENEX HFA) 45 mcg/actuation inhaler INHALE 2 PUFFS EVERY 6 HOURS NEEDED FOR SHORTNESS OF BREATH OR WHEEZING 3 Active Qvar RediHaler 80 mcg/actuation inhaler INHALE 2 PUFFS BY MOUTH EVERY 12 HOURS. 3 Active Trulicity 0.75 mg/0.5 mL pen injector INJECT 0.75 MG (0.5 ML) SUBCUTANEOUSLY WEEKLY 4 Active albuterol HFA (PROVENTIL HFA,VENTOLIN HFA,PROAIR HFA) 90 mcg/actuation inhaler Inhale 2 puffs every 6 (six) hours as needed for wheezing Active furosemide (LASIX) 20 mg tabletIndicati ons:Generalize d edema Take 1 tablet (20 mg total) by mouth daily 30 tablet 3 4 Active Additional Information Patient not taking.Reported on 12/01/2023 chlorhexidine (PERIDEX) 0.12 % solution SWISH AND SPIT WITH 15MLS BY MOUTH TWICE DAILY (AFTER MEALS) 4 Active dulaglutide (Trulicity) 1.5 mg/0.5 mL pen injector Active Tiadylt ER 360 mg 24 hr capsule Take 1 capsule (360 mg total) by mouth daily 90 capsule 3 4 Active evolocumab (Repatha SureClick) 140 mg/mL pen injector 1 mL (140 mg total) by Continuous Sub-Q Infusn (via wearable injector) route every 14 (fourteen) days 2 mL 11 4 Active rivaroxaban (Xarelto) 20 mg tablet TAKE 1 TABLET BY MOUTH EVERY DAY 90 tablet 2 4 Active Active Problems Problem Noted Date Diagnosed Date Acute renal failure superimp osed on stage 3 chronic kidney disease 12/01/2023 Medication side effects 04/27/2023 Chalazion left lower eyelid 05/16/2022 Assessment & Plan (12/07/2022 4:32 PM CDT): Risks, benefits and alternatives were discussed. Risks included but were not limited to pain, bleeding, scarring, recurrence, and possible need for additional procedures. Following this discussion, the patient wishes to proceed with chalazion incision and drainage. This was performed today without any complications. They will follow- up as needed. Assessment & Plan (10/28/2022 2:22 PM HOME ECONOMIST): Has persisted despite termite treater helper hot packs and previous antibiotic tx Refer for I and D Morbid (severe) obesity due to excess calories 0 03/24/2022 Body mass index 40.0-44.9, adult ([facility]) 03/24 Dizziness 09/06/2020 Statin myopathy 03/01/2020 Diabetes mellitus type 2 without retinopathy ( [facility]) 10/19/2019 Assessment & Plan (11/05/2023 2:41 PM HOME ECONOMIST): No diabetic retinopathy (DR) . Stressed importance of tight blood glucose control/ diet/exercise and A1C <7% to reduce the risk of diabetic complications. Report sent to PCP/endo. Assessment & Plan (10/28/2022 2:21 PM HOME ECONOMIST): No diabetic retinopathy (DR) . Stressed importance of tight blood glucose control/ diet/exercise and A1C <7% to reduce the risk of diabetic complications. Report sent to PCP/endo. Assessment & Plan (10/25/2021 2:50 PM HOME ECONOMIST): NO diabetic retinopathy (DR) . Stressed importance of tight blood glucose control/ diet/exercise and A1C <7% to reduce the risk of diabetic complications. Report sent to PCP/endo. Glaucoma suspect, both eyes 10/19/2019 Assessment & Plan (11/05/2023 2:39 PM HOME ECONOMIST): Thick cct ou Acceptable iop both eyes (OU) Stable previous RNFL both eyes (OU) CTM FU 1 year optic nerve (ON) oct and intraocular pressure (IOP) check Assessment & Plan (10/28/2022 2:20 PM HOME ECONOMIST): Thick cct ou Acceptable iop both eyes (OU) Stable RNFL both eyes (OU) CTM FU 1 year optic nerve (ON) oct and intraocular pressure (IOP) check Assessment & Plan (10/25/2021 2:30 PM HOME ECONOMIST): Thick cct ou Acceptable iop both eyes (OU) Normal RNFL both eyes (OU) Presbyopia 10/19/2019 S/P ablation of atrial flutter 12/14/2018 PVD (posterior vitreous detachment), both eyes 0 10/04/2018 Assessment & Plan (10/04/2018 12:33 PM HOME ECONOMIST): Without RT/RB. Chorioretinal scar, left eye 10/04/2018 Assessment & Plan (10/25/2021 2:50 PM HOME ECONOMIST): Stable, monitor Combined forms of age-related cataract of both e yes 10/01/2018 Assessment & Plan (11/05/2023 2:43 PM HOME ECONOMIST): NVS,monitor Assessment & Plan (10/28/2022 2:23 PM HOME ECONOMIST): NVS,monitor Assessment & Plan (05/16/2022 12:46 PM CDT): NVS, monitor Assessment & Plan (10/25/2021 2:50 PM HOME ECONOMIST): NVS, monitor Assessment & Plan (10/04/2018 12:33 PM HOME ECONOMIST): Mild, progressive cataract OU: ADLs stable. Diabetic eye exam ([facility]) 10/01/2018 Assessment & Plan (10/04/2018 12:34 PM HOME ECONOMIST): Uncontrolled diabetes: no evidence of diabetic retinopathy, and no macular edema. Discussed about importance of glycemic control, and ocular complications of uncontrolled diabetes. BMI 40.0-44.9, adult 06/09/2018 Other chest pain 12/25/2017 Assessment & Plan (12/25/2017 5:06 PM CDT): Based on his history of diabetes, hypertension, and prior tobacco abuse I have recommended stress test. I did discuss this with his primary manufacturing operations manager, and we will send him for a Lexiscan. Had a stress test last in 2010 which was negative. He has no prior history of coronary disease, but his non exertional symptoms are concerning, especially in light of his diabetes. Atrial flutter ([facility]) 09/08/2017 Assessment & Plan (02/26/2018 4:13 PM CDT): He is currently in atrial flutter, but has previously been atrial fibrillation. Based on his EKG, this is likely a left atrial flutter. This could be targeted for ablation at the time of PVI if it persists after PVI is performed. Noncompliance with medication regimen 07/31/2017 Adverse drug reaction 07/10/2017 [place]-inhibitor cough 07/10/2017 Morbid obesity with BMI of 40.0-44.9, adult 02/2017 Assessment & Plan (02/26/2018 4:14 PM CDT): We reviewed the importance of diet and exercise today for weight loss. To get his BMI less than 40, he will need a weight loss of about 20 lb. I did set a goal of a 10% weight loss with him, but at least BMI less than 40 will be useful to improve outcomes of pulmonary vein isolation in the future. Chronic anticoagulation 03/06/2017 Mixed diabetic hyperlipidemi a associated with type 2 diabetes mellitus ([facility]) 03/06/2017 Amiodarone toxicity 03/06/2017 Pulmonary hypertension 12/10/2016 Overview (01/23/2017): Pulmonary HTN Body mass index 40+ - severely obese 12/10/2016 Overview (01/23/2017): Morbid obesity with BMI of 40.0-44.9, adult Morbid obesity 11/27/2015 Overview (12/06/2016): Morbid obesity with BMI of 45.0-49.9, adult Assessment & Plan (11/17/2017 11:14 AM CDT): We discussed this in detail today. There is no doubt that his obesity is contributing to his medical problems, including his atrial fibrillation. I have advised diet and exercise to promote weight loss. Diabetic nephropathy ([facility]) 11/27/2015 Overview (12/06/2016): DM type 2 causing CKD stage 3 Persistent atrial fibrillation 11/27/2015 Overview (02/26/2018): Assessment & Plan (02/26/2018 4:13 PM CDT): Unfortunately, he has had recurrence of his [...] heart rate is currently controlled with diltiazem. Assessment & Plan (11/17/2017 11:13 AM CDT): He has now progressed to persistent atrial fibrillation. Previously, he did use amiodarone for maintenance of sinus rhythm. Evidently he had some dyspnea as well as concern for the corneal deposits on amiodarone. Given his young age, I would prefer to avoid amiodarone if possible. His options for management are somewhat limited. He has a single kidney, with some renal dysfunction. We could consider a class 3 antiarrhythmic drug, which would require hospital admission for inpatient loading. He has not had an ischemic evaluation or echocardiogram in some time, this would be to be done prior to starting class 1 antiarrhythmic. Pulmonary vein isolation for atrial fibrillation could be considered. However, given that he has now persistent atrial fibrillation his chance of success is reduced to about 50% with this procedure. A this point, like to try a cardioversion to see if he can regain sinus rhythm. It is unclear if his symptoms of dyspnea and fatigue are due to atrial fibrillation or perhaps his other comorbidities. I discussed the influence of obstructive sleep apnea, hypertension, and obesity on atrial fibrillation. I have strongly encouraged him to make efforts at weight loss. Patient's with obesity and not lose weight our last likely to maintain sinus rhythm. It also makes the ablation procedure more difficult. I would like to see him in follow-up after his cardioversion is performed to reassess his symptoms. He has a chads 2 Vasc score of 2 (diabetes, hypertension) and therefore should continue anticoagulation. He is tolerating rivaroxaban without any bleeding concerns currently. Statin intolerance 11/27/2015 Overview (12/06/2016): Statin intolerance Type 2 diabetes mellitus without complication ([facility]/HCC) 09/03/2015 Polyosteoarthritis 10/28/2014 Chronic kidney disease 10/28/2014 Acquired absence of kidney 10/28/2014 Chronic renal impairment 08/21/2014 Overview (12/06/2016): CKD (chronic kidney disease) JOANIE on CPAP 05/29/2014 Overview (12/06/2016): JOANIE on CPAP History of anticoagulant therapy 05/29/2014 Overview (12/06/2016): Chronic anticoagulation Pulmonary function studies abnormal 05/29/2014 Overview (12/06/2016): Abnormal pulmonary function test Gastroesophageal reflux disease 04/13/2014 Sleep apnea syndrome 04/13/2014 Paroxysmal atrial fibrillation (CMS/HCC) 014 Assessment & Plan (12/25/2017 5:05 PM CDT): He has maintained sinus rhythm for 1 [...] day. He should continue anticoagulation with Xarelto. Spinal stenosis of cervical region 04/13/2014 Degeneration of intervertebral disc of cervical region 04/13/2014 Bronchial asthma 05/26/2011 Hypertension associated with diabetes 05/26/2011 Palpitations 05/26/2011 Malignant neoplasm of kidney 05/26/2011 Diabetes mellitus 05/26/2011 Resolved Problems Problem Noted Date Diagnosed Date Resolved Date Benign hypertension 11/27/2015 03/24/20 Overview (12/06/2016): HTN (hypertension), benign Hyperlipidemia 05/26/2011 03/24/2022 Immunizations Name Administration Dates Next Due Hep B Vaccine 08/09/1993,03/11/1993,02/07/1993 Influenza, Quadrivalent, Spl it, Intramuscular 06/20/2020 Influenza, Quadrivalent, Spl it, Preservative Free, Intramuscular 05/27/2018,06/04/2017 Influenza, Trivalent, Adjuva nted, Intramuscular 06/27/2019 Influenza, Trivalent, IM (MDV) 06/11/2016,2014,06/09/2013 Influenza, Trivalent, Preser vative Free, Intramuscular 05/31/2013 Sars-CoV-2, Unspecified 01/12/2021 Social History Tobacco Use Types Packs/Day Years Used Date Smoking Tobacco: Former Cigarettes Smokeless Tobacco: Never Tobacco Cessation:Counseling Given: Not Answered Alcohol Use Standard Drinks/Week Comments No 0 (1 standard drink = 0.6 oz pur e alcohol) Sex and Gender Information Value Date Recorded Sex Assigned at Not on file Legal Sex Male 2:02 AM HOME ECONOMIST Gender Identity Male 08/02/2019 10:33 PM HOME ECONOMIST Sexual Orientation Straight 08/02/2019 10 :33 PM HOME ECONOMIST Last Filed Vital Signs Vital Sign Reading Time Taken Comments Blood Pressure 124/62 06/21/2024 12:51 PM CDT Pulse 90 06/21/2024 12:51 PM CDT Temperature 36 ??C (96.8 ??F) 11/09/2018 11:45 AM CDT Respiratory Rate 20 11/09/2018 5:00 PM CDT Oxygen Saturation 98% 06/21/2024 12:51 PM CDT Inhaled Oxygen Concentration - - Weight 140.2 kg (309 lb) 06/21/2024 12:51 PM CDT Height 185.4 cm (6' 1 ) 06/21/2024 12:51 PM CDT Body Mass Index 40.77 06/21/2024 12:51 PM CDT Plan of Treatment Not on file Procedures Procedure Name Priority Date/Time Associated Diagnosis Comments POCT LIPID PANEL Routine 06/21/2024 12:4 6 PM CDT Mixed diabetic hyperlipidemia associated with type 2 diabetes mellitus (HCC) BASIC METABOLIC PANEL Routine 12/30/2023 2:46 PM CDT from Last 3 Months or Most Recently Relevant to Health Maintenance Results * POCT lipid panel (06/21/2024 12:46 PM CDT) Cholesterol, POC 149 mg/dL HDL, POC 44 mg/dL Triglycerides, POC 123 mg/dL LDL Cholesterol POC 80 mg/dL Chol/HDL Ratio, POC 3.4 Non-HDL Cholesterol, POC 105 mg/dL Cholesterol Total, POC 149 mg/dL Capillary blood 06/21/2024 1 2:46 PM CDT Brando Doe MD POINT OF CARE TEST ORDERA BLES Final Result * (ABNORMAL) Basic metabolic panel (12/30/2023 2:46 PM CDT) Glucose 90 65 - 99 mg/dL [facility] Comment: ? Fasting reference interval BUN 17 7 - 25 mg/dL [facility] Creatinine 1.31(H) 0.70 - 1.28 mg/dL [facility] eGFR 59(L) > OR = 60 mL/min/1.7 3m2 [facility] BUN/creat ratio 13 6 - 22 (calc) [facility] Sodium 139 135 - 146 mmol/L [facility] Potassium, pl 4.6 3.5 - 5.3 mmol/L [facility] Chloride 107 98 - 110 mmol/L [facility] CO2 26 20 - 32 mmol/L [facility] Calcium 8.9 8.6 - 10.3 mg/dL [facility] 12/30/2023 2:46 PM CDT 12/30/2023 2:47 PM CDT Alfredo Oneill MD LAB BLOOD ORDERABLES Fin al Result [facility] [address] [id number] from Last 3 Months or Most Recently Relevant to Health Maintenance Insurance A[employer]NA MEDICARE AETNA MEDICARE AETNA MEDICARE Care Teams Piling Setter Relationship Specialty Start Date End Date Demian Madden MD [address] [facility] [address] [place] [address] PCP - General Family Medicine 11/25/17
--- OUTSIDE RECORDS SUMMARY | 2024-09-27 12:23 | XMS_ITS | Clinical Summary ---
Author Organization [facility] [address] Address [address] [place] [address] Care Team Providers Care Administrative Fellow Name Role Phone Demian Madden MD Primary Care Provider Allergies Active Allergy Reactions Criticality Noted Date Comments Guaifenesin Anxiety Low 06/09/2018 High dose makes him anxious Ciprofloxacin Unknown 09/06/2020 Dexamethasone Other (See comments) High Reaction: unknown, Apixaban Unknown 09/06/2020 [place]-3 Fatty Acids Unknown 09/06/2020 Hydrochlorothiazide Unknown Low Metoprolol Shortness of breath High 11/23/2017 Salmeterol Unknown Low Rocekce-Gss-Ukc Reductase Inhibitors Unknown Low Sulfa (Sulfonamide Antibiotics) Other (See comments) High Reaction: unknown, Prqcgwbgizj-Rfofsofow-Zopyk ter Anaphylaxis High 12/01/2023 Triamterene Unknown Low [...] as needed Active cyanocobalamin /folic acid (vitamin A99-pcskk acid) 1,000-[address] under the [...] needed. Assessment & Plan (10/28/2022 2:22 PM CLIENT SERVICE REPRESENTATIVE): Has persisted despite manager terminal hot packs and previous antibiotic tx Refer for I and D Morbid (severe) obesity due to excess calories 0 03/24/2022 Body mass index 40.0-44.9, adult ([facility]) 03/24 Dizziness 09/06/2020 Statin myopathy 03/01/2020 Diabetes mellitus type 2 without retinopathy ( S/[facility]) 10/19/2019 Assessment & Plan (11/05/2023 2:41 PM CLIENT SERVICE REPRESENTATIVE): No diabetic retinopathy (DR) . Stressed importance of tight blood glucose control/ diet/exercise and A1C <7% to reduce the risk of diabetic complications. Report sent to PCP/endo. Assessment & Plan (10/28/2022 2:21 PM CLIENT SERVICE REPRESENTATIVE): No diabetic retinopathy (DR) . Stressed importance of tight blood glucose control/ diet/exercise and A1C <7% to reduce the risk of diabetic complications. Report sent to PCP/endo. Assessment & Plan (10/25/2021 2:50 PM CLIENT SERVICE REPRESENTATIVE): NO diabetic retinopathy (DR) . Stressed importance of tight blood glucose control/ diet/exercise and A1C <7% to reduce the risk of diabetic complications. Report sent to PCP/endo. Glaucoma suspect, both eyes 10/19/2019 Assessment & Plan (11/05/2023 2:39 PM CLIENT SERVICE REPRESENTATIVE): Thick cct ou Acceptable iop both eyes (OU) Stable previous RNFL both eyes (OU) CTM FU 1 year optic nerve (ON) oct and intraocular pressure (IOP) check Assessment & Plan (10/28/2022 2:20 PM CLIENT SERVICE REPRESENTATIVE): Thick cct ou Acceptable iop both eyes (OU) Stable RNFL both eyes (OU) CTM FU 1 year optic nerve (ON) oct and intraocular pressure (IOP) check Assessment & Plan (10/25/2021 2:30 PM CLIENT SERVICE REPRESENTATIVE): Thick cct ou Acceptable iop both eyes (OU) Normal RNFL both eyes (OU) Presbyopia 10/19/2019 S/P ablation of atrial flutter 12/14/2018 PVD (posterior vitreous detachment), both eyes 0 10/04/2018 Assessment & Plan (10/04/2018 12:33 PM CLIENT SERVICE REPRESENTATIVE): Without RT/RB. Chorioretinal scar, left eye 10/04/2018 Assessment & Plan (10/25/2021 2:50 PM CLIENT SERVICE REPRESENTATIVE): Stable, monitor Combined forms of age-related cataract of both e yes 10/01/2018 Assessment & Plan (11/05/2023 2:43 PM CLIENT SERVICE REPRESENTATIVE): NVS,monitor Assessment & Plan (10/28/2022 2:23 PM CLIENT SERVICE REPRESENTATIVE): NVS,monitor Assessment & Plan (05/16/2022 12:46 PM CDT): NVS, monitor Assessment & Plan (10/25/2021 2:50 PM CLIENT SERVICE REPRESENTATIVE): NVS, monitor Assessment & Plan (10/04/2018 12:33 PM CLIENT SERVICE REPRESENTATIVE): Mild, progressive cataract OU: ADLs stable. Diabetic eye exam ([facility]) 10/01/2018 Assessment & Plan (10/04/2018 12:34 PM CLIENT SERVICE REPRESENTATIVE): Uncontrolled diabetes: no evidence of diabetic retinopathy, and no macular edema. Discussed about importance of glycemic control, and ocular complications of uncontrolled diabetes. BMI 40.0-44.9, adult 06/09/2018 Other chest pain 12/25/2017 Assessment & Plan (12/25/2017 5:06 PM CDT): Based on his history of diabetes, hypertension, and prior tobacco abuse I have recommended stress test. I did discuss this with his primary regional sales coordinator, and we will send him for a Lexiscan. Had a stress test last in 2010 which was negative. He has no prior history of coronary disease, but his non exertional symptoms are concerning, especially in light of his diabetes. Atrial flutter ([facility]) 09/08/2017 Assessment & Plan (02/26/2018 4:13 PM [...] a associated with type 2 diabetes mellitus ([facility]) 03/06/2017 Amiodarone toxicity 03/06/2017 Pulmonary hypertension 12/10/2016 [...] exercise to promote weight loss. Diabetic nephropathy (CMS/HCC) 11/27/2015 Overview (12/06/2016): DM type 2 causing [...] Date Resolved Date Benign hypertension 11/27/2015 03/24/20 22 Overview (12/06/2016): HTN (hypertension), benign Hyperlipidemia 05/26/2011 03/24/2022 Encounters Date Type Department Care Team Description 07/11/[address] [address] Sherri Daniels MA Unsuccessful Phone Call 1 (Med adh) from Last 3 Months Immunizations Name Administration Dates Next Due Hep B Vaccine 08/09/1993,03/11/1993,02/07/1993 Influenza, Quadrivalent, Spl it, Intramuscular 06/20/2020 Influenza, Quadrivalent, Spl it, Preservative Free, Intramuscular 05/27/2018,06/04/2017 Influenza, Trivalent, Adjuva nted, Intramuscular 06/27/2019 Influenza, Trivalent, IM (MDV) 06/11/2016,2014,06/09/2013 Influenza, Trivalent, Preser vative Free, Intramuscular 05/31/2013 Sars-CoV-2, Unspecified 01/12/2021 Surgical History Surgery Date Site/Laterality Comments NEPHRECTOMY Left cancer ROTATOR CUFF REPAIR Right CYSTECTOMY Right breast - benign AMPUTATION OF REPLICATED TOES Bilateral pinky toe Medical History Medical History Date Comments Hx Other Medical Arrhythmias PAF Hypertension Hypertension Hx Other Medical Obesity, Morbid Asthma Asthma Sleep apnea cpap Arrhythmia Hyperlipidemia Diabetes mellitus (HCC) Atrial fibrillation (CMS/HCC ) (HCC) Atrial flutter (CMS/HCC) (HCC) History of kidney cancer nephrec sal - renal cell cancer Chronic pain neck, back , lef t shoulder . torn rotator cuff Cataract GERD (gastroesophageal reflu x disease) Anemia Arthritis Cancer (CMS/HCC) (HCC) Nephrectomy 07/2004 Family History Medical History Relation Name Comments Coronary artery disease Brother 2 Amando nary Artery Bypass Graft; Anemia Father Ricki Pena Arthritis Father Ricki Pena Cancer Father Ricki Pena Prostate cancer Father Ricki Pena Cancer, pros diego; Alzheimer's disease Mother Raysa PenaCristian g Coronary artery disease Mother Raysa PenaGenaro conrading Coronary artery disease; Glaucoma Neg Hx Macular degeneration Neg Hx Retinal detachment Neg Hx Relation Name Status Comments Brother 1 Alive Brother 2 Father Ricki Pena (Age 74) Mother Raysa AlfordJose A Alive Social History Tobacco Use Types Packs/Day Years Used Date Smoking Tobacco: Former Cigarettes Smokeless Tobacco: Never Tobacco Cessation:Counseling Given: Not Answered Alcohol Use Standard Drinks/Week Comments No 0 (1 standard drink = 0.6 oz pur e alcohol) Sex and Gender Information Value Date Recorded Sex Assigned at Not on file Legal Sex Male 2:02 AM CLIENT SERVICE REPRESENTATIVE Gender Identity Male 08/02/2019 10:33 PM CLIENT SERVICE REPRESENTATIVE Sexual Orientation Straight 08/02/2019 10 :33 PM CLIENT SERVICE REPRESENTATIVE Obstetrics History Last Filed Vital Signs Vital Sign Reading [...] 06/21/2024 12:51 PM CDT Plan of Treatment Health Maintenance Due Date Last Done Comments Albumin Creatinine Ratio, Urine 1953 Colon Cancer Screening-Colonoscopy 1953 Depression Screening 1953 Fall Risk Assessment 1955 Hemoglobin A1C 1953 Hepatitis C Screening 1953 Prostate Cancer Screening-PSA 1953 Foot Exam 1953 Pneumococcal vaccine 65+ (1 of 2 - PCV) 1959 DTaP/Tdap/Td Vaccine (1 - Tdap) 1964 Zoster Vaccine (1 of 2) 2003 Abdominal Aortic Aneurysm (A AA) Screen 2018 Well Visit 65+ 2018 Influenza Vaccine (#1) 2024 , 06/27/2019, 05/27/2018, Additional history exists Dilated Eye Exam 11/04/2024 11/05/2023, , 10/25/2021, Additional history exists eGFR 12/29/2024 12/30/2023, 10/30, 10/21/2023, Additional history exists Lipid Panel 06/21/2025 06/21/2024, 10/01, 09/29/2022, Additional history exists Procedures Procedure Name Priority Date/Time Associated Diagnosis [...] LAB BLOOD ORDERABLES Fin al Result [facility] [address] [address] [id number] from Last 3 Months or Most Recently Relevant to Health Maintenance Insurance [facility] MEDICARE [facility] MEDICARE [facility] MEDICARE Care Teams Administrative Fellow Relationship Specialty Start Date End Date Demian Madden MD [address] [facility] [address] [place] [id number] PCP - General Family Medicine 11/25/17
--- OUTSIDE RECORDS SUMMARY | 2024-09-27 12:23 | XMS_ITS | Referral Summary ---
Author Organization [facility] Address [address] [place] [address] Care Team Providers Care Psychology Assistant Name Role Phone Unavailable Primary Care Provider Unavailabl e Source Comments [facility],non-owned Affiliates and Associated Physician Practices is amultiple site organization consisting of ambulatory clinics and hospital sitesin [place], [place], [place] and [place]. This disclosure is being madepursuant to the Care Everywhere program and may not contain all information available regarding this patient. Last updated 18.[facility] Basic6 Allergies Active Allergy Reactions Criticality Noted Date [...] fluticasone propionate (FLONASE) 50 MCG/ACT nasal spray [place] 2 sprays into each nostril once daily [...] (VITAMIN D3) 10 MCG (400 UNIT) Active Social History Tobacco Use Types Packs/Day Years [...] 06/26/2021 3:14 PM CDT Plan of Treatment Not on file
--- OUTSIDE RECORDS SUMMARY | 2024-09-27 12:23 | XMS_ITS | Patient Health Summary ---
Author Organization [facility] Address [address] [place] [address] Care Team Providers Care Installation Tech Name Role Phone Unavailable Primary Care Provider Unavailabl e Note from [facility],non-owned Affiliates and Associated Physician Practices is amultiple site organization consisting of ambulatory clinics and hospital sitesin [place], [place], [place] and [place]. This disclosure is being madepursuant to the Care Everywhere program and may not contain all information available regarding this patient. Last updated 18.[facility] Allergies * Guaifenesin(Itching) * Apixaban(Itching) * Fish Oil(GI Discomfort) * Hydrochlorothiazide(GI Discomfort) * Dexamethasone(GI Discomfort) -High Criticality * Metoprolol(Anaphylaxis) -High Criticality * Serevent Diskus(Itching) * Sulfa Drugs(Rash) -Medium Criticality * Hydrochlorothiazide W-Triamterene(GI Discomfort) Medications * Be aware that medications may not be up to date on this document. Alwaysverify current medications with the patient. * dulaglutide (TRULICITY) 1.5 MG/0.5ML injection Inject 1.5 mg subcutaneously every 7 days * ipratropium HFA (ATROVENT HFA) 17 MCG/ACT inhaler Inhale 2 puffs by mouth 3 times daily * beclomethasone dipropionate (QVAR) 80 MCG/ACT inhaler Inhale 1 puff by mouth 2 times daily * traMADol (ULTRAM) 50 MG tablet Take 50 mg by mouth every 6 hours as needed for Pain * omeprazole (PRILOSEC) 20 MG capsule Take 20 mg by mouth daily before breakfast * mirabegron ER 24hr (MYRBETRIQ) 25 MG tablet Take 25 mg by mouth once daily * valsartan (DIOVAN) 80 MG tablet Take 80 mg by mouth once daily * dilTIAZem HCl Coated Beads (DILTIAZEM CD PO) Take 360 mg by mouth once daily * rivaroxaban (XARELTO) 20 MG tablet Take 20 mg by mouth daily with food * fluticasone propionate (FLONASE) 50 MCG/ACT nasal spray [place] 2 sprays into each nostril once daily * Loratadine (CLARITIN PO) * Polyethylene Glycol 3350 (MIRALAX PO) * Cobalamin Combinations (B-12) 100-5000 MCG SUBL * Iron, Ferrous Sulfate, 142 (45 Fe) MG TBCR * calcium 500 mg tablet Take 500 mg by mouth 2 times daily with morning and evening meal * Potassium (POTASSIMIN PO) * Ascorbic Acid (VITAMIN C) 500 MG * Cholecalciferol (VITAMIN D3) 10 MCG (400 UNIT) Social History Tobacco Use Types Packs/Day Years [...]
--- OUTSIDE RECORDS SUMMARY | 2024-09-27 12:23 | XMS_ITS | Clinical Summary ---
Author Organization [facility] Care Team Providers Care Box Stacker Name Role Phone Unavailable Primary Care Provider Unavailabl e Social History Tobacco Use Types Packs/Day Years Used Date Smoking Tobacco: Never Assessed Sex and Gender Information Value Date Recorded Sex Assigned at Not on file Legal Sex Male 1:58 PM CDT Gender Identity Not on file Sexual Orientation Not on file Plan of Treatment Health Maintenance Due Date Last Done Comments Hepatitis C Virus (HCV) Screening 1955 TdaP Immunization 1955 Colonoscopy 1998 Colorectal Cancer Screening 1998 Cologuard 2003 Immunochemical Fecal Occult Blood 2003 Pneumococcal Immunization (50+ years) (1 of 1 - PCV) 2003 Zoster Immunization (1 of 2) 2003 Influenza Immunization (#1) 05/01/202408/01, 06/26/2020, 06/27/2019, Additional history exists SARS-COV-2 Immunization ( season) 2024 03/06/2021, 02/13/2021 Respiratory Syncytial Virus (RSV) Immunization (Adult) (1 - 1-dose 75+ series) 2028 Hepatitis B Immunization Completed 993, 03/11/1993, 02/07/1993 Meningococcal Immunization (ACWY) Aged Out No longer eligible based on patient's age to complete this topic Rotavirus Immunization Aged Out No lo nger eligible based on patient's age to complete this topic
--- OUTSIDE RECORDS SUMMARY | 2024-09-27 12:23 | XMS_ITS ---
Author Organization [facility] [address] Address [address] [place] [address] Care Team Providers Care Carrot Tier Name Role Phone Demian Madden MD Primary Care Provider Active Problems Problem Noted Date Diagnosed Date [...] needed. 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 Stressed importance of tight blood glucose control/ diet/exercise and A1C <7% to reduce the risk of diabetic complications. Report sent to PCP/endo. Assessment & Plan (10/28/2022 2:21 PM DIRECTOR PEOPLESOFT): No diabetic retinopathy (DR) . Stressed importance of tight blood glucose control/ diet/exercise and A1C <7% to reduce the risk of diabetic complications. Report sent to PCP/endo. Assessment & Plan (10/25/2021 2:50 PM DIRECTOR PEOPLESOFT): NO diabetic retinopathy (DR) . Stressed importance of tight blood glucose control/ diet/exercise and A1C <7% to reduce the risk of diabetic complications. Report sent to PCP/endo. Glaucoma suspect, both eyes 10/19/2019 Assessment & Plan (11/05/2023 2:39 PM DIRECTOR PEOPLESOFT): Thick cct ou Acceptable iop both eyes (OU) Stable previous RNFL both eyes (OU) CTM FU 1 year optic nerve (ON) oct and intraocular pressure (IOP) check Assessment & Plan (10/28/2022 2:20 PM DIRECTOR PEOPLESOFT): Thick cct ou Acceptable iop both eyes (OU) Stable RNFL both eyes (OU) CTM FU 1 year optic nerve (ON) oct and intraocular pressure (IOP) check Assessment & Plan (10/25/2021 2:30 PM DIRECTOR PEOPLESOFT): Thick cct ou Acceptable iop both eyes (OU) Normal RNFL both eyes (OU) Presbyopia 10/19/2019 S/P ablation of atrial flutter 12/14/2018 PVD (posterior vitreous detachment), both eyes 0 10/04/2018 Assessment & Plan (10/04/2018 12:33 PM DIRECTOR PEOPLESOFT): Without RT/RB. Chorioretinal scar, left eye 10/04/2018 Assessment & Plan (10/25/2021 2:50 PM DIRECTOR PEOPLESOFT): Stable, monitor Combined forms of age-related cataract of both e yes 10/01/2018 Assessment & Plan (11/05/2023 2:43 PM DIRECTOR PEOPLESOFT): NVS,monitor Assessment & Plan (10/28/2022 2:23 PM DIRECTOR PEOPLESOFT): NVS,monitor Assessment & Plan (05/16/2022 12:46 PM CDT): NVS, monitor Assessment & Plan (10/25/2021 2:50 PM DIRECTOR PEOPLESOFT): NVS, monitor Assessment & Plan (10/04/2018 12:33 PM DIRECTOR PEOPLESOFT): Mild, progressive cataract OU: ADLs stable. Diabetic eye exam ([facility]) 10/01/2018 Assessment & Plan (10/04/2018 12:34 PM DIRECTOR PEOPLESOFT): Uncontrolled diabetes: no evidence of diabetic retinopathy, and no macular edema. Discussed about importance of glycemic control, and ocular complications of uncontrolled diabetes. BMI 40.0-44.9, adult 06/09/2018 Other chest pain 12/25/2017 Assessment & Plan (12/25/2017 5:06 PM CDT): Based on his history of diabetes, hypertension, and prior tobacco abuse I have recommended stress test. I did discuss this with his primary motel front desk attendant, and we will send him for a Lexiscan. Had a stress test last in 2010 which was negative. He has no prior history of coronary disease, but his non exertional symptoms are concerning, especially in light of his diabetes. 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 Diabetic nephropathy ([facility]) 11/27/2015 Overview (12/06/2016): DM type 2 [...] neoplasm of kidney 05/26/2011 Diabetes mellitus 05/26/2011 Current Oncology Plans No current plan information found. Past Plans No past plan information found. Radiation Treatments * No radiation treatments are documented for this patient in [facility]. Treatments may have been administered in another system. Lifetime Dose Tracking * Chemical Lifetime Dose Automatic Entry Manual Entr y Air kerma at the reference point (Ka,r) 60 mGy 0 mGy 60 mGy Resolved Problems Problem Noted Date Diagnosed Date Resolved Date Benign hypertension 11/27/2015 03/24/20 22 Overview (12/06/2016): HTN (hypertension), benign Hyperlipidemia 05/26/2011 03/24/2022
== END 2024-09-27 11:14 | disposition home or self-care (01) ==
PROVIDERS: PCP Family Medicine; Visit Provider Internal Medicine Pulmonary Disease
DX: E04.2 Nontoxic multinodular goiter (principal)
CPT/HCPCS: 76536